=== PATIENT | male | born 1965 | race Caucasian/White ===

== ENCOUNTER 2020-02-13 04:41 | Inpatient (IN) | payer MEDICAID ==
[~2020-02-13] VITALS: Ht 170.2 cm; Wt 101.2 kg
[2020-02-13 05:00] VITALS: BP 148/104
[2020-02-13] MEDS ORDERED: LISINOPRIL (05:04)
[2020-02-13] MEDS ORDERED: PROTONIX 20 MG20 MG PO (05:04)
[2020-02-13 06:15] LABS: ABSOLUTE LYMPHOCYTES 0.7 thou/uL (0.8-5.3); ABSOLUTE MONOCYTES 0.6 thou/uL (0.0-1.2); ABSOLUTE NEUTROPHILS 7.2 thou/uL (1.6-8.1); BASOPHILS 0.5 %; EOSINOPHILS 0.1 %; HEMATOCRIT 46.6 % (42.0-52.0); HEMOGLOBIN 16.2 gm/dL (14.0-18.0); LYMPHOCYTES 7.7 %; MCH 33.3 pg (26.0-34.0); MCHC 34.7 g/dL (28.0-37.0); MCV 96.1 fL (80.0-100.0); MONOCYTES 7.3 %; NUCLEATED RBCS 0 /100WBC; PLATELET COUNT* 261 thou/uL (150-400); POLYS 84.4 %; RBC 4.85 mil/uL (4.50-6.00); RDW-CV 13.7 % (10.5-14.5); WBC 8.6 thou/uL (4.0-11.0)
[2020-02-13 06:25] LABS: CALCIUM 8.9 mg/dL (8.5-10.1); CREATININE 2.3 mg/dL (0.6-1.3); POTASSIUM 3.6 mmol/L (3.5-5.1)
[2020-02-13 06:30] LABS: ALBUMIN 3.8 g/dL (3.4-5.0); TOTAL BILIRUBIN 0.6 mg/dL (<0.1-1.0); TOTAL PROTEIN 8.1 g/dL (6.4-8.2)
--- NOTE | 2020-02-13 06:37 | NUR ---
PATIENT HAS HAD .02 MG ROMAZICON ADMINISTERED AND REPEATED X 1
[2020-02-13 07:54] LABS: BE -3.7 mmol/L (-2 to +3); PCO2 36.5 mmHg (35.0-45.0); PO2 71.3 mmHg (75.0-100.0); pH 7.374 (7.340-7.450)
--- NOTE | 2020-02-13 08:37 | NUR ---
ALYSSA NOTIFIED UPON PT RETURN FROM CT. PT CONNECTED TO O2 AND MONITOR
[2020-02-13 09:27] LABS: URINE BILIRUBIN NEGATIVE (Negative); URINE BLOOD NEGATIVE (Negative); URINE CLARITY CLEAR; URINE COLOR YELLOW; URINE GLUCOSE-RANDOM NEGATIVE (Negative); URINE KETONES TRACE (Negative); URINE LEUKOCYTES-REFLEX NEGATIVE (Negative); URINE NITRITE-REFLEX NEGATIVE (Negative); URINE PROTEIN TRACE (Negative); URINE SPECIFIC GRAVITY >= 1.030 (1.005-1.030); URINE UROBILINOGEN 0.2 E.U./dl (0.2-1.0)
--- NOTE | 2020-02-13 09:40 | NUR ---
PT'S FIANCE IS AT BEDSIDE HELPING THE PATIENT EAT BREAKFAST.
[2020-02-13 09:42] LABS: AMP/METHAMP POSITIVE (Negative); BARBITURATES Negative (Negative); BENZODIAZEPINES Negative (Negative); COCAINE Negative (Negative); METHADONE Negative (Negative); OPIATES Negative (Negative); PCP Negative (Negative); THC Negative (Negative)
--- NOTE | 2020-02-13 11:00 | NUR ---
PT SAT UP IN BED, THIS NURSE WENT IN THE ROOM AND ASKED THE PATIENT IF HE NEEDED ANYTHING. PT STATED THAT HE "NEEDS TO USE THE URINAL". THIS NURSE ASSISTED THE PATIENT TO USE THE URINAL. PT LAID BACK DOWN IN BED AND FELL ASLEEP.
--- NOTE | 2020-02-13 13:00 | NUR ---
PT PRESSED THE CALL LIGHT AND ASKED TO USE THE URINAL. THIS NURSE ASSITED THE PATIENT WITH THE URINAL. PT LAID BACK DOWN AND FELL ASLEEP.
[2020-02-13 13:28] VITALS: BP 170/98
[2020-02-13 16:10] VITALS: BP 98/70
--- NOTE | 2020-02-13 19:18 | EKG ---
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
--- NOTE | 2020-02-13 19:18 | EKG ---
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
[2020-02-13 19:45] VITALS: BP 100/62
[2020-02-14] VITALS: BP 140/76
[2020-02-14 04:00] VITALS: BP 124/92
[2020-02-14 04:41] LABS: CALCIUM 7.8 mg/dL (8.5-10.1); POTASSIUM 3.1 mmol/L (3.5-5.1)
[2020-02-14 04:45] LABS: ABSOLUTE BASOPHILS 0.1 thou/uL (0.0-0.2); ABSOLUTE EOSINOPHILS 0.1 thou/uL (0.0-0.7); ABSOLUTE LYMPHOCYTES 1.9 thou/uL (0.8-5.3); ABSOLUTE MONOCYTES 0.7 thou/uL (0.0-1.2); BASOPHILS 1.7 %; EOSINOPHILS 2.1 %; HEMATOCRIT 42.2 % (42.0-52.0); HEMOGLOBIN 14.6 gm/dL (14.0-18.0); MCH 33.3 pg (26.0-34.0); MCHC 34.7 g/dL (28.0-37.0); MCV 95.9 fL (80.0-100.0); MONOCYTES 12.2 %; MPV 8.6 fl. (7.2-11.1); NUCLEATED RBCS 0 /100WBC; PLATELET COUNT* 193 thou/uL (150-400); RDW-CV 13.6 % (10.5-14.5); WBC 5.9 thou/uL (4.0-11.0)
[2020-02-14 05:03] LABS: CREATININE 1.2 mg/dL (0.6-1.3)
--- NOTE | 2020-02-14 05:52 | NUR ---
PATIENT PROGRESSING TOWARDS GOALS: ORIENTED X4. DENIES PAIN AND DISCOMFORT. PATIENT EAGER TO BE DISCHARGED TODAY. REPORTS HE "MIGHT HAVE TO ESCAPE OUT OF HERE." DISCOURAGE PATIENT TO LEAVE AGAINST MEDICAL ADVICE. ENCOURAGED PATIENT TO WAIT FOR DOCTORS TO ROUND. CALL LIGHT WITHIN REACH
[2020-02-14 08:00] VITALS: BP 132/86
[2020-02-14 11:28] VITALS: BP 132/86
--- NOTE | 2020-02-14 13:05 | NUR ---
ORDER RECEIVED TO DISCHARGE [facility] HOME TO SELF CARE. MED REC, MEDICATION EDUCATION, STROKE EDUCATION, AND NEED FOR FOLLOW UP WITH HIS PRIMARY CARE PROVIDER COVERED WITH RICK AND STATED UNDERSTOOD BY THE PATIENT. IV AND TELEMETRY PACK REMOVED. PATIENT GATHERED HIS BELONNGINGS. HE WAS TRASNPORTED VIA WHEELCHAIR BY NURSING STAFF TO AWAITING CAR WITH HIS SIGNIFICANT OTHER PRESENT. PATIENT IN NOAPPARENT SIGNS OF DISTRESS AT THE TIME OF DISCHARGE. DISCHARGE TOME OF 12:30.
== END 2020-02-14 12:30 | disposition home or self-care (01) | DRG 93 ==
LOC: M.ERS 04:41 → M.TBA-ER 08:43 → M.2W 08:43
PROVIDERS: Family Medicine; Personal Emergency Response Attendant; ADMIT Internal Medicine; ATTEND Internal Medicine
DX: G92 Toxic encephalopathy (principal); I10 Essential (primary) hypertension; J44.9 Chronic obstructive pulmonary disease, unspecified; F17.210 Nicotine dependence, cigarettes, uncomplicated; F10.20 Alcohol dependence, uncomplicated; R41.0 Disorientation, unspecified; T50.995A Adverse effect of other drugs, medicaments and biological substances, initial encounter; Z88.8 Allergy status to other drugs, medicaments and biological substances; Y92.89 Other specified places as the place of occurrence of the external cause; Z79.899 Other long term (current) drug therapy

== ENCOUNTER 2020-06-20 19:21 | Emergency (ER) | payer MEDICAID ==
[~2020-06-20] VITALS: Ht 170.2 cm; Wt 95.3 kg
[~2020-06-20 19:21] MED LIST: LISINOPRIL; PROTONIX 20 MG20 MG PO
[2020-06-20] MEDS ORDERED: MELOXICAM15 MG PO (19:37)
[2020-06-20 20:30] LABS: HEMATOCRIT 46.5 % (42.0-52.0); HEMOGLOBIN 15.8 gm/dL (14.0-18.0); MCH 32.8 pg (26.0-34.0); MCV 96.5 fL (80.0-100.0); MPV 7.8 fl. (7.2-11.1); NUCLEATED RBCS 0 /100WBC; PLATELET COUNT* 248 thou/uL (150-400); RBC 4.82 mil/uL (4.50-6.00); RDW-CV 13.3 % (10.5-14.5); WBC 12.8 thou/uL (4.0-11.0)
[2020-06-20 20:39] LABS: CALCIUM 9.3 mg/dL (8.5-10.1); CREATININE 1.1 mg/dL (0.6-1.3); POTASSIUM 3.2 mmol/L (3.5-5.1)
[2020-06-20 20:43] LABS: ALBUMIN 4.1 g/dL (3.4-5.0); TOTAL BILIRUBIN 0.5 mg/dL (<0.1-1.0); TOTAL PROTEIN 8.2 g/dL (6.4-8.2)
[2020-06-20 21:00] LABS: ABSOLUTE EOSINOPHILS 0.1 thou/uL (0.0-0.7); ABSOLUTE LYMPHOCYTES 1.2 thou/uL (0.8-5.3); ABSOLUTE MONOCYTES 0.4 thou/uL (0.0-1.2); ABSOLUTE NEUTROPHILS 11.1 thou/uL (1.6-8.1)
[2020-06-20 21:01] LABS: PLATELET ESTIMATE ADEQUATE
[2020-06-21 01:27] VITALS: BP 110/79
--- NOTE | 2020-06-21 09:52 | EKG ---
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: : 1965 Requested By: Mar Perry Order Number: [id number] MD: Maurisio Rivers Measurements Intervals [place] Rate: 111 P: 0 [place]: 52 QRS: 64 QRSD: 81 T: 48 QT: 425 QTc: 578 Interpretive Statements Sinus tachycardia with borderline first-degree AV block Multiple premature complexes, vent & supraven with rare blocked Pac Prolonged QT interval Baseline wander in lead(s) V1 Compared to ECG 02/13/2020 07:55:33 PACs and PVCs are noted as well as a blocked PAC Prolonged QT interval now present Electronically Signed On 06-21-2020 9:52:06 CDT by Maurisio Rivers [email or web address] <ELECTRONICALLY SIGNED> By: Maurisio Rivers MD, [facility] 06/21/2052 32 32 Maurisio Rivers MD, [facility] /EPI
== END 2020-06-21 01:28 | disposition home or self-care (01) ==
LOC: M.ERS 19:21
PROVIDERS: Personal Emergency Response Attendant
DX: R11.10 Vomiting, unspecified (principal); T50.995A Adverse effect of other drugs, medicaments and biological substances, initial encounter; I10 Essential (primary) hypertension; J44.9 Chronic obstructive pulmonary disease, unspecified; Z79.899 Other long term (current) drug therapy; Z88.8 Allergy status to other drugs, medicaments and biological substances; Y92.89 Other specified places as the place of occurrence of the external cause

== ENCOUNTER 2021-01-18 04:19 | Emergency (ER) | payer MEDICAID ==
[~2021-01-18] VITALS: Ht 170.2 cm; Wt 95.7 kg
[~2021-01-18 04:19] MED LIST changes: +MELOXICAM15 MG PO
[2021-01-18] MEDS ORDERED: NEURONTIN300 MG PO (04:29)
[2021-01-18 04:53] LABS: ABSOLUTE BASOPHILS 0.1 thou/uL (0.0-0.2); ABSOLUTE EOSINOPHILS 0.1 thou/uL (0.0-0.7); ABSOLUTE MONOCYTES 1.1 thou/uL (0.0-1.2); ABSOLUTE NEUTROPHILS 4.9 thou/uL (1.6-8.1); BASOPHILS 0.9 %; HEMATOCRIT 47.8 % (42.0-52.0); HEMOGLOBIN 16.8 gm/dL (14.0-18.0); LYMPHOCYTES 32.8 %; MCH 32.8 pg (26.0-34.0); MCHC 35.3 g/dL (28.0-37.0); MONOCYTES 11.9 %; MPV 7.9 fl. (7.2-11.1); NUCLEATED RBCS 0 /100WBC; PLATELET COUNT* 293 thou/uL (150-400); POLYS 53.4 %; RBC 5.13 mil/uL (4.50-6.00); RDW-CV 13.1 % (10.5-14.5); WBC 9.2 thou/uL (4.0-11.0)
[2021-01-18 05:32] LABS: CALCIUM 9.4 mg/dL (8.5-10.1); CREATININE 1.3 mg/dL (0.6-1.3); POTASSIUM 3.5 mmol/L (3.5-5.1)
[2021-01-18 05:37] LABS: ALBUMIN 4.2 g/dL (3.4-5.0); TOTAL BILIRUBIN 0.5 mg/dL (<0.1-1.0); TOTAL PROTEIN 8.4 g/dL (6.4-8.2)
[2021-01-18 06:46] VITALS: BP 156/95
--- NOTE | 2021-01-18 10:24 | EKG ---
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 : 1965 Requested By: Jolly Prieto Order Number: [id number] MD: Xiang Dominguez Measurements Intervals [place] Rate: 115 P: 53 CT: 163 QRS: 74 QRSD: 87 T: 40 QT: 329 QTc: 455 Interpretive Statements Sinus tachycardia Probable left atrial enlargement Baseline wander in lead(s) V4,V5 Electronically Signed On 01-18-2021 10:24:44 CDT by Xiang Dominguez [email or web address] <ELECTRONICALLY SIGNED> By: Xiang Dominguez MD, [facility] 01/18/21 [facility] Xiang Dominguez MD, [facility] /EPI
--- NOTE | 2021-01-21 11:08 | EKG ---
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: [place] : 1965 Requested By: Jolly Prieto Order Number: [id number] MD: Xiang Dominguez Measurements Intervals [place] Rate: 114 P: [place]: QRS: 73 QRSD: 88 T: 35 QT: 332 QTc: 458 Interpretive Statements sinus tachycardia septal infarct, old Baseline wander in lead(s) V2,V4 Compared to ECG 06/20/2020 20:33:45 Myocardial infarct finding now present ventricular premature complex(es) no longer present Prolonged QT interval no longer present Electronically Signed On 01-21-2021 11:07:58 CDT by Xiang Dominguez [email or web address] <ELECTRONICALLY SIGNED> By: Xiang Dominguez MD, [facility] 01/21/21 1107 0531 Xiang Dominguez MD, [facility] /EPI
== END 2021-01-18 06:47 | disposition home or self-care (01) ==
LOC: M.ERS 04:19
PROVIDERS: Emergency Medicine
DX: F15.10 Other stimulant abuse, uncomplicated (principal); I10 Essential (primary) hypertension; J44.9 Chronic obstructive pulmonary disease, unspecified; R11.2 Nausea with vomiting, unspecified; Z88.8 Allergy status to other drugs, medicaments and biological substances